=== PATIENT | female | born 1955 | race Caucasian/White ===

== ENCOUNTER → 2016-06-23 | Outpatient (CLI) | payer OTHER ==
--- NOTE | 2016-06-23 10:40 | RAD ---
Exam performed: 2 views of the chest. Indication: SHORTNESS OF BREATH Date of Service:06/23/2016 2:00 AM . Comparison : 12/06/12 Findings: PA and lateral radiographs of the chest reveal a normal cardiomediastinal contour. The lungs are clear. No pleural fluid is seen. The visualized osseous structures are unremarkable. Impression: Radiographically normal chest.
== END | disposition home or self-care (01) ==
LOC: RAD 09:57
PROVIDERS: ATTEND Internal Medicine Cardiovascular Disease
DX: R06.02 Shortness of breath (principal)
CPT/HCPCS: 71020

== ENCOUNTER → 2016-07-05 | Outpatient (CLI) | payer OTHER ==
[~2016-07-05] MED LIST: CALC500T27 PO; CHOL400C2 PO; MULT-245 PO
--- NOTE | 2016-07-05 13:51 | RAD ---
APPROVED REPORT Test Type: Exercise Stress Nurse/Tech: Lily Peña R.N. Test Indications: shortness of breath, chest discomfort Cardiac History: none Medications: see ehr Medical History: see ehr Resting ECG: SR Resting Heart Rate: 69 bpm Resting Blood Pressure: 140/78mmHg Pretest Chest Pain: No chest pain Nurse/Tech Notes lungs cta, heart tones regular, good radial pulse Consent: The procedure was explained to the patient in lay terms. Informed consent was witnessed. Ben eout was entered into [email or web address]. History and Stress Test performed by Lily Peña R.N. Stress Symptoms No chest pain or symptoms. POST EXERCISE Reason for Termination: Reached target heart rate Target HR: Yes Max HR: 136 bpm 85% of Maximum Predicted HR: 160 bpm Exercise duration: 7:07 min:sec, Stage Exercise capacity: 7.0METs Max Blood Pressure: 176/63mmHg Blood Pressure response to exercise: Normal blood pressure response during stress. Heart Rate response to exercise: normal Chest Pain: No. Arrhythmia: Yes. pvc noted ST Change: Yes. ST depression noted during exercise, resolved during recovery INTERPRETATION Stress EKG Conclusion: No evidence of stress induced EKG changes to suggest ischemia. Imaging Protocol IMAGE PROTOCOL: Rest Tc-99m/stress Tc-99m 1 day Rest: Stress: Viability: Radiopharm.Tc99m LosemmrinYi08l Sestamibi Jkwf37yNa 35.3mCi Duration 15min. 10min. Img Date 07/05/2016 07/05/2016 Inj-Img Vggw37tug. 75min. Post-Injection Exercise: 1 MINUTE Rest Admin Site:IV - Right AntecubitalAdministrator:Priya Wheeler, RT (R)(N) Stress Admin Site: IV - Right AntecubitalAdministrator: Jay Tucker RT (R)(N) STRESS DATA End Diast. Vol.94.0mlAv. Heart Rate68.0bpm End Syst. Vol.20.0mlCO Index BSA0.0L/min Myocardial Rzim171.0gEject. Srgfnwyv05.0% Stress Rates Pk. Fill Rate2.74EDV/secLVtime Pk. Fill 133.10msec Pk. Empty Rate3.72ESV/secLVtime Pk. Ygfpk963.64msec 1/3 Pk. Fill1.81EDV/sec Stress Scores Regional WT0.00Summed WT0.00 Regional WM0.00Summed WM1.00 LV Perfusion There is a small sized, mild in severity, mid to distal anterior wall/apical reversible perfusion def ect suggestive of impaired perfusion reserve without any infarct or ischemia. Wall Motion Normal wall motion. LV Perf. Quant 17 Seg. SSS1.00 17 Seg. SRS0.00 17 Seg. SDS1.00 Stress Defect Extent (% LAD)3.80Rest Defect Extent (% LAD)0.00Rev. Defect Extent (% LAD)2.50 Stress Defect Extent (% LCX) 0.00Rest Defect Extent (% LCX)0.00Rev. Defect Extent (% LCX)0.00 Stress Defect Extent (% RCA)0.00Rest Defect Extent (% RCA)0.00Rev. Defect Extent (% RCA)0.00 Stress Defect Extent (% MELISA)1.30Rest Defect Extent (% MELISA)0.00Rev. Defect Extent (% MELISA)0.90 Other Information Quality:Good Risk Assessment: Low-Moderate Risk Conclusion 1. No evidence of stress induced EKG changes. 2. There is a small sized, mild in severity, mid to distal anterior wall/apical reversible perfusion defect suggestive of impaired perfusion reserve without any infarct or ischemia. 3. Normal EF at > 70% 4. Low to moderate risk study
--- NOTE | 2016-07-05 13:55 | CARD ---
APPROVED REPORT EXAM: Two-dimensional and M-mode echocardiogram with Doppler and color Doppler. Other Information Quality : Average Rhythm : NSR INDICATION Dyspnea Murmur 2D DIMENSIONS RVDd2.0 (2.9-3.5cm)Left Atrium(2D)3.2 (1.6-4.0cm) IVSd0.9 (0.7-1.1cm)Aortic Root(2D)3.2 (2.0-3.7cm) LVDd5.0 (3.9-5.9cm)LVOT Diameter2.0 (1.8-2.4cm) PWd0.9 (0.7-1.1cm)LVDs2.4 (2.5-4.0cm) FS (%) 32.3 %SV97.9 ml LVEF(%)73.2 (>50%) Aortic Valve AoV Peak Raciel.115.3cm/sAoV VTI24.7cm AO Peak GR.5.3mmHgLVOT Peak Raciel.116.4cm/s LVOT VTI 26.96cmAO Mean GR.3mmHg WESLEY (VMAX)3.18pq2MUN (VTI)3.28cm2 Mitral Valve MV E Egjwmxit99.5cm/sMV DECEL [id number] MV A Tfbhernf35.4cm/sMV E Mean Gr.2mmHg MV DCI03feW/A Ratio1.0 MV A Oftonekh529xkAIR (PHT)3.21cm2 TDI E/Lateral E'9.3E/Medial E'13.6 Pulmonary Valve PV Peak Zktnlwta959.9cm/sPV Peak Grad.5mmHg RVOT VTI23.6cm Tricuspid Valve TR P. Cecaqhqu922mn/sRAP JEWDVFRT4yjUf TR Peak Gr.08llSnMTEV49vmKn Pulmonary Vein S1 Lmkgnhej02.5cm/sD2 Cdjvdgbr75.4cm/s LEFT VENTRICLE The left ventricle is normal size. There is normal left ventricular wall thickness. Left ventricle sy stolic function is normal. The Ejection Fraction is 65-70%. There is normal LV segmental wall motion. The left ventricular diastolic function and filling is normal for age. RIGHT VENTRICLE The right ventricle is normal size. The right ventricular systolic function is normal. ATRIA The left atrium size is normal. The right atrium size is normal. The interatrial septum is intact wit h no evidence for an atrial septal defect or patent foramen ovale as noted on 2-D or Doppler imaging. AORTIC VALVE The aortic valve is normal in structure and function. The aortic valve is trileaflet. Doppler and Col or Flow revealed no significant aortic regurgitation. There is no significant aortic valvular stenosi s. MITRAL VALVE The mitral valve leaflets are thickened. There is no mitral valve stenosis. Doppler and Color Flow re vealed mild mitral regurgitation. TRICUSPID VALVE The tricuspid valve is normal in structure and function. Doppler and Color Flow revealed mild tricusp id regurgitation. The PA pressure was estimated at 34 mmHg. There is no tricuspid valve stenosis. PULMONIC VALVE The pulmonic valve is not well visualized. Doppler and Color Flow revealed no pulmonic valvular regur gitation. There is no pulmonic valvular stenosis. GREAT VESSELS The aortic root is normal in size. Normal pulmonary venous flow (Doppler). The IVC is normal in size and collapses >50% with inspiration. PERICARDIAL EFFUSION There is no evidence of significant pericardial effusion. Critical Notification Critical Value: No <Conclusion> Left ventricle systolic function is normal. The Ejection Fraction is 65-70%. There is normal LV segmental wall motion. Doppler and Color Flow revealed mild mitral regurgitation. Doppler and Color Flow revealed mild tricuspid regurgitation. The PA pressure was estimated at 34 mmH g.
== END | disposition home or self-care (01) ==
LOC: NM 08:25
PROVIDERS: ATTEND Internal Medicine Cardiovascular Disease
DX: I34.0 Nonrheumatic mitral (valve) insufficiency (principal); R06.09 Other forms of dyspnea; R06.02 Shortness of breath; I07.1 Rheumatic tricuspid insufficiency
CPT/HCPCS: 78452; 93017; 93306; 96374; 96376; A9500